=== PATIENT | female | born 1930 | race Caucasian/White ===

== ENCOUNTER 2017-06-19 10:04 | Emergency (ER) | payer MEDICARE, OTHER ==
[2014-10-03 12:41] VITALS: BMI 29.1
[~2017-06-19 10:04] MED LIST: AMLODIPINE-ATO1 EAC7 PO; BENICAR20 MG PO; CALCIUM 600+D T1 TA1 PO; CLOTRIM ANTIFUN15 GM TOPICAL; OMNICEF300 MG PO; PREVACID15 MG PO; SYNTHROID75 MCG PO; TOPROL XL25 MG PO
== END 2017-06-19 12:16 | disposition home or self-care (01) ==
LOC: D.ER 10:04
DX: S76.011A Strain of muscle, fascia and tendon of right hip, initial encounter (principal); X58.XXXA Exposure to other specified factors, initial encounter; Y93.89 Activity, other specified; Y92.89 Other specified places as the place of occurrence of the external cause; M16.11 Unilateral primary osteoarthritis, right hip; E11.9 Type 2 diabetes mellitus without complications

== ENCOUNTER 2017-12-23 13:49 | Inpatient (IN) | payer MEDICARE, OTHER ==
[~2017-12-23] VITALS: Ht 167.6 cm; Wt 72.6 kg
--- NOTE | ~2017-12-23 | MORECARE ---
CASE MANAGEMENT DISCHARGE SUMMARY PATIENT: JAVID BARKSDALE UNIT: [id number] ADM DATE: 12/24/17 AGE: 87 : [birth year] SEX: F ROOM/BED: D.2229 AUTHOR: CASE, AGRICULTURAL MECHANIC PHYSICIAN: REFERRING PHYSICIAN: DENITA POWELL MD DATE OF SERVICE: 12/24/17 Discharge Plan Patient Name: JAVID BARKSDALE [facility] [facility] 1930 Planned Disposition: Home Health Service Anticipated Discharge Date: Discharge Date: Expected LOS: Initial Reviewer: [email or web address] Initial Review Date: 12/26/2017 Generated: 12/26/17 2:54 pm Coverage Notice Reviewer: [email or web address] Cathy Ricci Notice Issued Date-Time: 12/23/2017 19:45 Notice Type: Medicare Outpatient Observation Notice Notice Delivered To: Patient Relationship to Patient: Self Concaving Machine Operator Name: Cecilia You Delivery Method: - Zandra Days: Prior Verbal Notification: Recipient Understood Notice: Recipient Signature: Med Rec Note Co-signed by Attending: Coverage Notice Comment: Patient Name: JAVID BARKSDALE Page [phone] All edits/amendments must be made on the electronic document DICTATION DATE: 12/26/17 1353 STRAWHAT BLOCKING OPERATOR: 12/26/17 1353 RPT#: [id number] DC DATE: STATUS: ADM IN [facility] [address] [place] [address] END OF REPORT
[2017-12-23] MEDS ORDERED: METOPROLOL TART25 MG PO (14:12)
[2017-12-23] MEDS ORDERED: PROTONIX40 MG PO (14:14)
[2017-12-23] MEDS ORDERED: HYZAAR 50-12.51 TAB PO (14:15)
[2017-12-23] MEDS ORDERED: ULTRAM50 MG PO (14:15)
[2017-12-23 14:56] LABS: BASOPHILS 0.3 % (0-2); EOSINOPHILS 1.2 % (0-7); HEMATOCRIT 41.1 % (36.0-48.0); HEMOGLOBIN 13.7 g/dL (12-16); IMMATURE GRANULOCYTES 0.3 % (0-5); MCH 30.7 pg (26.0-34.0); MCHC 33.3 g/dL (31.0-37.0); MCV 92.2 fL (80.0-100.0); MEAN PLATELET VOLUME 10.2 fL (7.4-10.4); MONOCYTES 11.7 % (2-11); NEUTROPHILS 74.5 % (40-80); PLATELET COUNT 201 10x3/uL (130-400); RBC 4.46 10x6/uL (4.00-5.40); RDW 13.3 % (11.5-14.5); WBC 10.3 10x3/uL (4.8-10.8)
[2017-12-23 15:04] LABS: INR 1.04 (0.85-1.17)
[2017-12-23 15:10] LABS: ALKALINE PHOSPHATASE 77 U/L (46-116); ALT (SGPT) 21 U/L (10-68); BILIRUBIN - TOTAL 0.96 mg/dL (0.2-1.3); CALC OSMOLALITY 271 mosm/kg (275-300); CALCIUM 9.3 mg/dL (8.5-10.1); CHLORIDE - SERUM 98 mmol/L (98-107); D-DIMER-QUANTITATIVE 1.91 ug/mLFEU (0.20-0.54); PROTEIN - SERUM 7.8 g/dL (6.4-8.2); SODIUM 133 mmol/L (136-145); UREA NITROGEN 27 mg/dL (7-18); eGFR NON AFRICAN AMERICAN 55 mL/min (90-120)
[2017-12-23 15:11] LABS: GLUCOSE 117 mg/dL (74-106)
[2017-12-23 15:15] LABS: POTASSIUM - SERUM 4.5 mmol/L (3.5-5.1)
[2017-12-23 15:20] LABS: C-REACTIVE PROTEIN 0.4 mg/dL (0.0-0.9); CKMB 0.9 U/L (0.0-3.6)
[2017-12-23 15:21] LABS: TROPONIN-I < 0.017 ng/mL (0.000-0.060)
[2017-12-23 18:53] LABS: APPEARANCE HAZY (CLEAR); BACTERIA MANY /hpf (NONE SEEN); BILIRUBIN NEGATIVE (NEGATIVE); COLOR YELLOW (YELLOW); EPITHELIAL CELLS 0-5 /hpf (0-5); GLUCOSE NEGATIVE (NEGATIVE); KETONE NEGATIVE (NEGATIVE); NITRITE POSITIVE (NEGATIVE); PROTEIN NEGATIVE (NEGATIVE); RED CELLS - URINE 0-5 /hpf (0-5); SPECIFIC GRAVITY 1.015 (1.005-1.020); UROBILINOGEN NORMAL (NORMAL)
[2017-12-24 02:32] VITALS: BP 127/63; BMI 25.8
[2017-12-24 04:13] VITALS: BP 12/62
[2017-12-24 09:28] VITALS: BP 115/60
[2017-12-24 12:13] VITALS: BP 114/54
[2017-12-24 13:41] VITALS: Ht 167.6 cm; Wt 72.6 kg
[2017-12-24 16:50] VITALS: BP 124/72
[2017-12-24 21:19] VITALS: BP 99/63
[2017-12-25] VITALS (7 sets, daily range): BP systolic 102–156; BP diastolic 48–76
[2017-12-26 04:00] VITALS: BP 104/50
[2017-12-26 06:20] LABS: BASOPHILS 0.8 % (0-2); EOSINOPHILS 3.2 % (0-7); HEMATOCRIT 35.4 % (36.0-48.0); HEMOGLOBIN 11.5 g/dL (12-16); IMMATURE GRANULOCYTES 0.3 % (0-5); LYMPHOCYTES 22.8 % (15-50); MCH 30.2 pg (26.0-34.0); MCHC 32.5 g/dL (31.0-37.0); MCV 92.9 fL (80.0-100.0); MEAN PLATELET VOLUME 10.7 fL (7.4-10.4); MONOCYTES 18.6 % (2-11); NEUTROPHILS 54.3 % (40-80); PLATELET COUNT 193 10x3/uL (130-400); RBC 3.81 10x6/uL (4.00-5.40); RDW 13.4 % (11.5-14.5); WBC 6.3 10x3/uL (4.8-10.8)
[2017-12-26 06:39] LABS: ANION GAP 9.7 mmol/L (8-16); CALCIUM 8.4 mg/dL (8.5-10.1); CARBON DIOXIDE 30.4 mmol/L (21.0-32.0); POTASSIUM - SERUM 4.1 mmol/L (3.5-5.1)
[2017-12-26 09:00] VITALS: BP 137/74
[2017-12-26] MEDS ORDERED: LEVAQUIN250 MG PO (12:05)
[2017-12-26 12:17] VITALS: BP 108/65
[2017-12-26] MEDS ORDERED: NORCO-5 PO (13:43)
== END 2017-12-26 14:42 | disposition home health service (06) | DRG 554 ==
LOC: D.ER 13:49 → D.EDHOLD 18:17 → OBSVTIME 18:18 → D.MS 19:10
PROVIDERS: Family Medicine; Internal Medicine Nephrology
DX: M16.0 Bilateral primary osteoarthritis of hip (principal); N39.0 Urinary tract infection, site not specified; F44.4 Conversion disorder with motor symptom or deficit; E11.40 Type 2 diabetes mellitus with diabetic neuropathy, unspecified; M85.80 Other specified disorders of bone density and structure, unspecified site; K21.9 Gastro-esophageal reflux disease without esophagitis; R50.9 Fever, unspecified; M51.35 Other intervertebral disc degeneration, thoracolumbar region